=== PATIENT | female | born 1930 | race Caucasian/White ===

== ENCOUNTER 2016-08-26 16:58 | Inpatient (IN) | payer OTHER ==
[~2016-08-26] VITALS: Ht 152.4 cm; Wt 57.3 kg
[~2016-08-26 16:58] MED LIST: ATV1 PO; LATA0.009; TIMO0.5S2; UNKNOWN MEDS; [UNRECOGNIZED DRUG - OTHER]
[2016-08-26] MEDS ORDERED: SODIUM CHLORIDE 0.9% 1000ML 1,000 ML IV STA (17:11)
--- NOTE | 2016-08-26 17:18 | EMERGENCY ROOM VISIT NOTE ---
History Report prepared by Joleen: Anca Whipple Under the Supervision of: Dr. Leeroy Carcamo M.D. First contact with patient: 17:01 Chief Complaint: HIP PAIN Stated Complaint: FALL, HIP PAIN History of Present Illness The patient is an 86 year old female who presents to the Emergency Room with complaints of persistent right hip pain that began prior to arrival. She currently rates her discomfort as a 5/10 in severity. Per the patient's son, the patient missed one step and fell down two steps onto her right hip. He states that he found the patient lying on her right hip, denying any signs of hitting her head. The patient's son states that he tried moving her, but states that movement worsened her pain. He states that he called ALS. Per nursing staff the patient received 4 mg of Zofran and 50 mcg of Fentanyl prior to arrival. The patient denies any other pain or headache. The patient's family reports that the patient is on aspirin daily. They deny the patient having any past medical history. Source of History: patient, family, nursing staff Onset: prior to arrival Position: other (right hip) Symptom Intensity: 5/10 Timing: other (persistent) Modifying Factors (Worsening): movement Associated Symptoms: No headache Review of Systems See HPI for pertinent positives & negatives. A total of 10 systems reviewed and were otherwise negative. Past Medical & Surgical Medical Problems: (1) Right Hip Fracture Surgical Problems: (1) History of cholecystectomy (2) Hx of tonsillectomy Family History Noncontributory secondary to age Social History Housing Status: lives with family Occupation Status: retired Current/Historical Medications Scheduled Aspirin (Aspirin), 1 TAB PO DAILY Allergies Coded Allergies: No Known Allergies (Unverified , 08/26/16) Physical Exam Vital Signs Date Time Temp Pulse Resp B/P Pulse Ox O2 Delivery O2 Flow Rate FiO2 08/26/16 18:42 80 16 155/83 99 08/26/16 17:07 36.8 80 18 178/80 97 Room Air Physical Exam GENERAL: Patient is in no acute distress. HEENT: No acute trauma, normocephalic atraumatic, mucous membranes moist, no nasal congestion, no scleral icterus. No scalp hematoma. NECK: No stridor, no adenopathy, no meningismus, trachea is midline. No posterior C-spine tenderness. LUNGS: Clear to auscultation bilaterally, no wheeze, no rhonchi, breath sounds equal. HEART: Without murmurs gallops or rubs, regular rate and rhythm. ABDOMEN: Soft, nontender, bowel sounds positive, no hernias, no peritonitis. EXTREMITIES: Right hip is tender with palpation. The right hip and knee are flexed slightly. Any movement of the right lower extremity causes hip pain. Strong dorsalis pedis pulse on the right. No pain to palpate the mid to distal femur, knee, tib/fib, ankle or foot. NEUROLOGIC: Oriented x 3, no acute motor or sensory deficits, no focal weakness. SKIN: No rash, no jaundice, no diaphoresis. Medical Decision & Procedures ER Provider Diagnostic Interpretation: X-ray results as stated below per interpretation by me and the radiologist: RIGHT PELVIS/UNILATERAL HIP 2-3VIEWS CLINICAL HISTORY: FALL, RT HIP PAIN Right trauma. Pain. COMPARISON: None. DISCUSSION: Intertrochanteric fracture right hip. Slight angulation. No evidence of dislocation. No evidence for acetabular protrusion. There is no evidence for soft tissue swelling. IMPRESSION: Intertrochanteric fracture right hip. Mild angulation. Electronically signed by: Mahesh Hanson M.D. 08/26/2016 6:15 PM Dictated Date/Time: 08/26/2016 6:14 PM Laboratory Results 08/26/16 17:36 08/26/16 17:36 Test 08/26/16 00:00 08/26/16 17:36 Red Blood Count 4.51 M/uL (4.2-5.4) Mean Corpuscular Volume 86.3 fL (80-100) Mean Corpuscular Hemoglobin 29.7 pg (25-34) Mean Corpuscular Hemoglobin Concent 34.4 g/dl (32-36) RDW Standard Deviation 44.3 fL (36.4-46.3) RDW Coefficient of Variation 14.0 % (11.5-14.5) Mean Platelet Volume 10.3 fL (7.4-10.4) Prothrombin Time 10.1 SECONDS (9.0-12.0) Prothromb Time International Ratio 0.9 (0.9-1.1) Activated Partial Thromboplast Time 25.6 SECONDS (21.0-31.0) Partial Thromboplastin Ratio 1.0 Anion Gap 10.0 mmol/L (3-11) Est Creatinine Clear Calc Drug Dose 50.7 ml/min Estimated GFR () 94.0 Estimated GFR (Non- 81.1 BUN/Creatinine Ratio 28.8 (10-20) Calcium Level 8.7 mg/dl (8.5-10.1) Total Bilirubin 0.2 mg/dl (0.2-1) Aspartate Amino Transf (AST/SGOT) 18 U/L (15-37) Alanine Aminotransferase (ALT/SGPT) 20 U/L (12-78) Alkaline Phosphatase 76 U/L (45-117) Total Protein 7.1 gm/dl (6.4-8.2) Albumin 3.3 gm/dl (3.4-5.0) Globulin 3.8 gm/dl (2.5-4.0) Albumin/Globulin Ratio 0.9 (0.9-2) Thyroid Stimulating Hormone (TSH) 4.830 uIu/ml (0.300-4.500) Laboratory results reviewed by me. Medications Administered Medications (Trade) Dose Ordered Sig/Whit Route Start Time Stop Time Status Last Admin Dose Admin Sodium Chloride (Nss 1000ml) 1,000 ml @ 125 mls/hr Q8H STAT IV 08/26/16 17:11 08/27/16 01:10 08/26/16 17:34 125 MLS/HR Morphine Sulfate (MoRPHine SULFATE INJ) 4 mg Q15M PRN IV 08/26/16 17:15 09/09/16 17:14 08/26/16 17:35 4 MG ECG Indication: other (trauma) Rate (beats per minute): 87 Rhythm: normal sinus Findings: no acute ischemic change, no ectopy ED Course 170: The patient was evaluated in room C6. A complete history and physical exam was performed by the medical student. 170: The patient was evaluated in room C6. A complete history and physical exam was performed. 171: Ordered Sodium Chloride 1000 ml @ 125 mls/hr IV. 1715: Ordered Morphine Sulfate 4 mg IV. 1823: I discussed the patients case with Dr. Hastings, Orthopedics. He would like the patient to be evaluated under medicine. I will consult medicine. 183: I discussed the patients case with Dr. [place], [facility] [place] He wants the patient to be evaluated by orthopedics. 183: I rediscussed the patients case with Daniela Mo. He will evaluate the patient for further treatment. 1836: I discussed the exam findings with the patients family at this time. I discussed the treatment plan and they verbalized complete understanding and agreement. The patient was resting comfortably at this time. She will be evaluated for further treatment. Medical Decision The patient is an 86 year old female who presents to the ED with complaints of right hip pain. Differential diagnoses considered include pelvis or hip fracture, head injury, c-spine injury, hematoma, contusion, strain, femur fracture. There is no leukocytosis or concerning anemia. No significant electrolyte abnormality or kidney failure. There is no hepatitis. TSH only slightly elevated. Urinalysis result is pending. Pelvis and right hip films were done, there is no pelvic fracture, there is a right intertrochanteric hip fracture. She is neurovascularly intact distally in the right lower extremity. She has no headache or neck pain, she denies hitting her head or injuring her neck. The only injury was to her right hip. I spoke with orthopedics, I talked with medicine. The patient will be brought into the hospital for eventual orthopedic intervention. During her ER stay, she received IV saline, she was given IV morphine for pain control. She seems comfortable. I did speak with her family about my findings. Case management has been involved. Consults Time Called: 1821 Consulting Physician: Daniela Mo Returned Call: 1822 I discussed the patients case with Daniela Mo. He would like the patient to be evaluated under medicine. I will consult medicine. Additional Consults: Time Called: 1826 Consulted Physician: MARIAELENA Correa Returned Call: 1829 Additional Comments: I discussed the patients case with MARIAELENA Correa. He wants the patient to be evaluated by orthopedics. Time Called: 1830 Consulted Physician: Daniela Mo Returned Call: [phone] Additional Comments: I rediscussed the patients case with Daniela Mo. He will evaluate the patient for further treatment. Impression Primary Impression: Hip fracture, right Additional Impression: Fall Scribe Attestation The scribe's documentation has been prepared under my direction and personally reviewed by me in its entirety. I confirm that the note above accurately reflects all work, treatment, procedures, and medical decision making performed by me. Departure Information Dispostion Being Evaluated By Surgeon Referrals Niko Duenas M.D. (PCP) Problem Qualifiers
[2016-08-26] MEDS ORDERED: ASPI1TAB83 PO (17:23)
[2016-08-26] MEDS: MoRPHine SULFATE 4 MG/ML 1 ML CARP\\VIAL IV PRN ×2 (17:35→19:47)
[2016-08-26 17:46] LABS: HEMATOCRIT 38.9 % (37-47); MEAN CELL VOLUME 86.3 fL (80-100); MEAN CORPUSCULAR HEMOGLOBIN 29.7 pg (25-34); MEAN CORPUSCULAR HGB CONC 34.4 g/dl (32-36); MEAN PLATELET VOLUME 10.3 fL (7.4-10.4); PLATELET COUNT 219 K/uL (130-400); RED BLOOD COUNT 4.51 M/uL (4.2-5.4); WHITE BLOOD COUNT 6.67 K/uL (4.8-10.8)
[2016-08-26 17:54] LABS: INR 0.9 (0.9-1.1); PROTHROMBIN TIME (PATIENT) 10.1 SECONDS (9.0-12.0)
[2016-08-26 18:13] LABS: BUN/CREATININE RATIO 28.8 (10-20); CALCIUM 8.7 mg/dl (8.5-10.1); CREATININE 0.62 mg/dl (0.60-1.20); POTASSIUM 3.6 mmol/L (3.5-5.1)
--- NOTE | 2016-08-26 18:16 | DIAGNOSTIC IMAGING REPORT ---
RIGHT PELVIS/UNILATERAL HIP 2-3VIEWS CLINICAL HISTORY: FALL, RT HIP PAIN Right trauma. Pain. COMPARISON: None. DISCUSSION: Intertrochanteric fracture right hip. Slight angulation. No evidence of dislocation. No evidence for acetabular protrusion. There is no evidence for soft tissue swelling. IMPRESSION: Intertrochanteric fracture right hip. Mild angulation. Electronically signed by: Mahesh Hanson M.D. 08/26/2016 6:15 PM Dictated Date/Time: 08/26/2016 6:14 PM
[2016-08-26 18:24] LABS: ALB/GLOB RATIO 0.9 (0.9-2); THYROID STIMULATING HORMONE 4.83 uIu/ml (0.300-4.500)
[2016-08-26] MEDS ORDERED: MoRPHine SULFATE 2 MG/ML CARP IV PRN (18:45)
[2016-08-26 19:02] LABS: URINE APPEARANCE CLEAR (CLEAR); URINE BILIRUBIN NEG (NEG); URINE COLOR YELLOW; URINE NITRITE NEG (NEG); URINE PH 5.5 (4.5-7.5); URINE SPECIFIC GRAVITY 1.021 (1.000-1.030); UROBILINOGEN NEG (NEG)
[2016-08-26 19:03] LABS: MANUAL MICROSCOPIC REQUIRED? NO; REVIEW REQ? NO
--- NOTE | 2016-08-26 19:37 | DIAGNOSTIC IMAGING REPORT ---
CHEST ONE VIEW PORTABLE CLINICAL HISTORY: Pre-op for hip surgery preoperative evaluation COMPARISON STUDY: 06/11/2007 FINDINGS: The bones soft tissues and hemidiaphragms are normal. The cardiomediastinal silhouette is normal. The lungs are clear. The pulmonary vasculature is normal. IMPRESSION: Negative chest. Electronically signed by: Mahesh Hanson M.D. 08/26/2016 7:35 PM Dictated Date/Time: 08/26/2016 7:35 PM
[2016-08-26 20:00] VITALS: BP 124/76; PULSE 82; TEMP 36.4; O2SAT 94; Ht 152.4 cm; Wt 57.3 kg
[2016-08-26 20:41] VITALS: BP 124/76; PULSE 82; TEMP 36.4; O2SAT 94
[2016-08-26] MEDS: OXYCODONE/ACETAMINOPHEN 5-325 TAB PO PRN (22:25)
[2016-08-26] MEDS: SODIUM CHLORIDE 0.45% 1000ML 1,000 ML IV SCH (22:26)
--- NOTE | 2016-08-26 22:27 | Medical Consult ---
Consultation Date of Consultation: Aug 26, 2016. Attending Physician: Juan Luis Hastings M.D. Reason for Consultation: Pre op clearance History of Present Illness Mrs Dumont is a pleasant 86 year old female who recently moved here from [facility] in December 2015. She has not yet established with a doctor in the [facility] however as per her son she has no chronic medical issues established by her doctor in [facility]. Her son (Derik) is by the bedside and is translating. She speaks and can understand limited Indonesian. She was seen in the ER for right hip pain after a fall down steps. X-ray shows an intertrochanteric fracture of the right hip. The patient feels otherwise well apart from this. She denies any chest pain, shortness of breath, loss of consciousness or hitting her head. She appears comfortable around her son and can understand some of my questions without translation. He appears to be fully translating my questions and her answers. He is feeding her at bedside when I left. I have no concerns for abuse however recommend using a mess cook in the morning especially for consent for the surgery. She routinely walks 500m around the block without any shortness of breath, dizziness or chest pain. She is able to make is up 1 flight of stairs at home without a problem (she has not tried 2 flights). She does not have any night sweats, abnormal bleeding or bruising. Past Medical/Surgical History Medical Problems: None. Takes aspirin for primary prevention. Past Surgical History (1) Cholecystectomy > 20 years previously. No anesthetic problems at that time. Social History Smoking Status: Never Smoker Alcohol Use: daily small glass of wine and occasional G[employer]T Drug Use: none Marital Status: Housing Status: lives with family Occupation Status: retired Allergies Coded Allergies: No Known Allergies (Unverified , 08/26/16) Current Inpatient Medications Current Inpatient Medications Medications (Trade) Dose Ordered Sig/Whit Route Start Time Stop Time Status Last Admin Dose Admin Sodium Chloride (1/2 Nss 1000ml) 1,000 ml @ 50 mls/hr Q20H IV 08/26/16 18:39 09/25/16 18:38 Morphine Sulfate (MoRPHine SULFATE INJ) 2 mg Q1H PRN IV 08/26/16 18:45 09/09/16 18:44 Oxycodone/ Acetaminophen 1 tab 1 tab Q4H PRN PO 08/26/16 18:45 09/09/16 18:44 Cefazolin Sodium (Ancef 2000mg/60 ml D5W) 60 ml @ 100 mls/hr PREOP IV 08/27/16 06:00 08/27/16 23:59 Aspirin (Ecotrin Tab) 81 mg DAILY PO 08/27/16 09:00 09/26/16 08:59 Review of Systems Constitutional: No chills, No fever, No sweats Eyes: No worsening of vision ENT: No hearing loss Respiratory: No cough, No dyspnea at rest, No dyspnea on exertion, No shortness of breath, No sputum, No wheezing Abdomen: + problem reported (last BM today reportedly normal), No GI bleeding, No constipation, No diarrhea, No nausea, No pain, No vomiting Genitourinary - Female: No dysuria, No urinary frequency, No urinary incontinence, No urinary retention, No urinary urgency Endocrine: No excessive thirst, No excessive urination, No fatigue Hematologic / Lymphatic: No abnormal bleeding/bruising, No clotting problems Integumentary: No itch, No rash Physical Exam Date Time Temp Pulse Resp B/P Pulse Ox O2 Delivery O2 Flow Rate FiO2 08/26/16 20:41 36.4 82 18 124/76 94 Nasal Cannula 2.0 08/26/16 19:54 95 Nasal Cannula 2.0 08/26/16 19:53 88 Room Air 08/26/16 19:51 91 18 133/64 91 08/26/16 18:42 80 16 155/83 99 08/26/16 17:07 36.8 80 18 178/80 97 Room Air General Appearance: WD/WN, no apparent distress Head: normocephalic, atraumatic Eyes: normal inspection, PERRL, EOMI ENT: normal ENT inspection, pharynx normal Neck: supple, no JVD Respiratory/Chest: chest non-tender, lungs clear, normal breath sounds, no respiratory distress, no accessory muscle use Cardiovascular: normal peripheral pulses (bounding strong radial pulses), + systolic murmur (loudest at RUSB and apex, radiates to carotids, ), + irregularly irregular Abdomen/GI: normal bowel sounds, soft, + tenderness (Right groin pain on RLQ palpation) Back: no CVA tenderness Extremities/Musculoskelatal: no calf tenderness, no pedal edema, + pertinent finding (cap refil <2s distal to #, DP pulse intact, patient in traction, ankle plantarflexion and 1st MTPJ flexion intact distal to #, Sensation intact distal to #) Neurologic/Psych: sealer aircraft II-XII nml as tested (no facial droop, subjective numbness, SCM and trapezius intact, no swallowing difficulties), alert, normal mood/affect, oriented x 3 (although gets the year wrong) Skin: normal color, warm/dry, no rash Laboratory Results Last 24 Hours Test 08/26/16 00:00 08/26/16 17:36 Urine Color YELLOW Urine Appearance CLEAR Urine pH 5.5 Urine Specific [place] 1.021 Urine Protein NEG Urine Glucose (UA) NEG Urine Ketones NEG Urine Occult Blood 1+ Urine Nitrite NEG Urine Bilirubin NEG Urine Urobilinogen NEG Urine Leukocyte Esterase NEG Urine WBC (Auto) 0 /hpf Urine RBC (Auto) 5-10 /hpf Urine Hyaline Casts (Auto) 1-5 /lpf Urine Epithelial Cells (Auto) 10-20 /lpf Urine Bacteria (Auto) NEG White Blood Count 6.67 K/uL Red Blood Count 4.51 M/uL Hemoglobin 13.4 g/dL Hematocrit 38.9 % Mean Corpuscular Volume 86.3 fL Mean Corpuscular Hemoglobin 29.7 pg Mean Corpuscular Hemoglobin Concent 34.4 g/dl RDW Standard Deviation 44.3 fL RDW Coefficient of Variation 14.0 % Platelet Count 219 K/uL Mean Platelet Volume 10.3 fL Prothrombin Time 10.1 SECONDS Prothromb Time International Ratio 0.9 Activated Partial Thromboplast Time 25.6 SECONDS Partial Thromboplastin Ratio 1.0 Sodium Level 145 mmol/L Potassium Level 3.6 mmol/L Chloride Level 107 mmol/L Carbon Dioxide Level 28 mmol/L Anion Gap 10.0 mmol/L Blood Urea Nitrogen 18 mg/dl Creatinine 0.62 mg/dl Est Creatinine Clear Calc Drug Dose 50.7 ml/min Estimated GFR () 94.0 Estimated GFR (Non- 81.1 BUN/Creatinine Ratio 28.8 Random Glucose 123 mg/dl Calcium Level 8.7 mg/dl Total Bilirubin 0.2 mg/dl Aspartate Amino Transf (AST/SGOT) 18 U/L Alanine Aminotransferase (ALT/SGPT) 20 U/L Alkaline Phosphatase 76 U/L Total Protein 7.1 gm/dl Albumin 3.3 gm/dl Globulin 3.8 gm/dl Albumin/Globulin Ratio 0.9 Thyroid Stimulating Hormone (TSH) 4.830 uIu/ml Assessment & Plan Documented By: Lokesh Tam 86 yo female with intertrochanteric fracture right hip. Intertrochanteric fracture of right hip - management as per primary orthopedic team New early onset systolic murmur on examination - recommend echocardiogram in morning before surgery to assess ?aortic stenosis , mitral regurgitation. No pulmonary edema on CXR and lack of symptoms previously would favor aortic sclerosis. Irregularly irregular HR - stat EKG shows SR with premature supraventricular complexes which would explain this rather than atrial fibrillation. Recheck of pulse after latest EKG @ 21:32 for regular for at least 30 seconds. Pre operative clearance Revised Cardiac Risk Index for Pre-Operative Risk - 0 Recommend investigating murmur pre op as above Aspirin can be stopped as she takes it for primary prevention only if required by the primary orthopedic team. Hematuria - 5-10 RBC with urine, recommend outpatient follow up, test to clear VTE Prophylaxis - as per primary orthopedic team Code - Full as per patient wishes Disposition - managed by primary ortho team Resident Physician Supervision Note: Pt examined independently - discussed with daughter who served as mess cook. I discussed the case with the resident and agree with the findings and plan as documented in the note. Any exceptions or clarifications are listed here. Admitted following mechanical fall leading to an intertrochanteric fracture - per family she has no significant medical history and is relatively active An echo was ordered by the resident due to a murmur - while mild, this may be reasonable to r/o stenosis as it is difficult to danielle mets. Pt states her pain is well controlled OE AAO x 3 S1,2 - mild systolic murmur NT, ND, BS+ No CCE P: Echo and can likely proceed to surgery as RCRI < 0.4% based on Hx Resident Tracking Resident Involvement: Resident Care Provided Care Provided: Adult Hospital Medicine
[2016-08-26 23:32] VITALS: BP 157/69; PULSE 89; TEMP 36.4; O2SAT 95
[2016-08-27] VITALS (8 sets, daily range): BP systolic 92–136; BP diastolic 50–69; PULSE 91–106; TEMP 36.4–37.1; O2SAT 95–99
[2016-08-27] MEDS ORDERED: CEFAZOLIN 2000 MG/60 ML D5W 60 ML IV SCH (06:00)
[2016-08-27 06:33] LABS: HEMATOCRIT 35.4 % (37-47)
--- NOTE | 2016-08-27 08:28 | PROGRESS NOTE ---
DATE: 08/27/2016 SUBJECTIVE: Glenda is an 86-year-old female, who speaks very little Icelandic, who sustained a fall and has a right intertrochanteric hip fracture. She was admitted thru the ER last evening. She is otherwise healthy. No pre-existing hip pain. They have requested Dr. Santana's care. I did stop by and visit with the patient and her family this morning and explained the situation that Dr. Santana or the physician reference assistant would be in to see her later on today. She is resting in bed and looked quite comfortable. No urgent needs. She has been set up and scheduled for surgery later today as long as she is medically cleared. I will transfer her care to Dr. Santana and they will doing a formal evaluation and treatment. I answered some questions as far as typical process with this type of injury. GUILLAUME
--- NOTE | 2016-08-27 08:32 | History and Physical ---
History & Physical Date Aug 27, 2016. Chief Complaint Right hip pain History of Present Illness The patient is a 86 year old female with complaints of right hip pain s/p fall. Has never injured the right hip in the past. Admits to pain with attempted weightbearing and with motion. Denies numbness or tingling distally. Denies calf pain. Past Medical/Surgical History Medical Problems: (1) Right Hip Fracture Surgical Problems: (1) History of cholecystectomy (2) Hx of tonsillectomy Additional History Hepatic Disease: No Endocrine Disorder: No Kidney Disease: No Hypertension: No Heart Disease: No Bleeding Tendencies: No Infectious Diseases: No Other: Denies headache, chest pain, shortness of breath, fevers, chills, night sweats. Allergies Coded Allergies: No Known Allergies (Unverified , 08/26/16) Home Medications Scheduled Aspirin (Aspirin), 1 TAB PO DAILY Physical Examination Skin: warm/dry, no rash Eyes: normal inspection ENT: normal ENT inspection, + pertinent finding (upper dental plate ) Respiratory/Chest: lungs clear, normal breath sounds, no respiratory distress Cardiovascular: regular rate, rhythm, no edema, no murmur Abdomen / GI: normal bowel sounds, non tender Extremities: + pertinent finding (right lower extremity is shortened, foot is externally rotated, tenderness over the right greater trochanter, calf supple and non-tender) Neurologic/Psych: no motor/sensory deficits (+5 strength with dorsi/plantar flexion, capillary refill under 2 seconds), alert, oriented x 3 Addiitonal Comments: Patient accompanied by her son and fellow family member, pippa, does not speak much Turkmen, her son translates for her, NAD Diagnosis Right hip fracture Plan of Treatment Glenda will undergo a Right hip trochanteric nailing by Dr. Santana from [facility] on 08/27/16 at the [facility]. The patient has been NPO. All consents and forms completely and signed accordingly by the patient and her son. The pros and cons of surgery have been discussed and all parties are agreeable. Appropriate labs and imaging have been obtained. Orders will follow post-operatively accordingly. Will most likely need a short term rehab stay upon discharge from the hospital. Will also need a 2 week follow-up at [facility] with Dr. Santana if possible for staple removal. Any further questions or concerns please notify our office at [phone], thank you.
[2016-08-27] MEDS ORDERED: EpHEDrine SULFATE INJ 50 MG/ML AMP IV PRN (08:45)
[2016-08-27] MEDS ORDERED: HYDROmorphone INJ 2 MG/ML SYR/VIAL IV PRN (08:45)
[2016-08-27] MEDS ORDERED: ONDANSETRON INJ 2 MG/ML 2 ML VIAL IV PRN (08:45)
[2016-08-27] MEDS ORDERED: PHENYLEPHRINE 100MCG/ML 5ML SYR IV PRN (08:45)
[2016-08-27] MEDS ORDERED: ATROPINE SULFATE 0.1 MG/ML 5ML SYR IV PRN (08:45)
[2016-08-27] MEDS ORDERED: PROPOFOL IV EMULSION 10 MG/ML 20 ML VIAL IV ONE (09:06)
[2016-08-27] MEDS ORDERED: MIDAZOLAM HCL 1 MG/ML 2ML VIAL ONE (09:06)
[2016-08-27] MEDS ORDERED: FENTANYL CITRATE INJ 50 MCG/1 ML 2 ML VIAL ONE (09:06)
[2016-08-27] MEDS ORDERED: LIDOCAINE HCL 2% 2 ML VIAL (20MG/ML) ONE (09:07)
[2016-08-27] MEDS ORDERED: ALBUMIN HUMAN 5% 12.5 GM/250 ML VIAL IV ONE (09:50)
[2016-08-27] MEDS ORDERED: PHENYLEPHRINE HCL INJ 10 MG/ML VIAL ONE (10:39)
[2016-08-27] MEDS ORDERED: PHENYLEPHRINE 100MCG/ML 5ML SYR ONE (10:39)
[2016-08-27] MEDS ORDERED: BUPIVACAINE 0.5 % 5 MG/1 ML PF 10ML VIAL ONE (10:45)
[2016-08-27] MEDS ORDERED: POVIDONE-IODINE OP SOLN 30 ML BTL ONE (11:05)
[2016-08-27] MEDS ORDERED: LIDOCAINE/EPINEPHRINE 1% 20 ML VIAL ONE ×2 (11:12→11:41)
--- NOTE | 2016-08-27 11:18 | ORTHOPEDIC CONSULTATION ---
DATE OF CONSULTATION: 08/27/2016 HISTORY OF PRESENT ILLNESS: The patient was admitted last evening while Dr. Hastings was non linear editor and I have assumed her care at the patient's son's request. She is an 86-year-old female who speaks very little Central African. She is from [facility]. She fell yesterday at her son's home injuring her right hip. She has no significant past medical history. She had gallbladder removed. She does not take any medicines other than aspirin and has no allergies. PHYSICAL EXAMINATION: On exam, she has a shortened externally rotated right hip, there is tenderness to palpation of the right leg. She is awake, alert and oriented. She can move her arms and her left leg without difficulty. She has a 2+ dorsalis pedis pulse. Normal sensation in the foot. She can flex and extend her ankle. Her leg is otherwise nontender. Radiographs show an angulated uncomminuted appearing intertrochanteric fracture with probable osteoporosis. There is no arthritis. PLAN: My recommendation is to have a long troch nail inserted. The treatment options, risks and benefits were reviewed and they elected to proceed with surgery. an informed consent is obtained. I reviewed her medical consultation as well as her labs and echo is pending. Risks of infection, bleeding, pain, scarring, nerve and blood vessel damage, blood clots, embolism, heart attack, stroke, and , hardware failure, cut out of the implant are discussed. We reviewed milestones in her recovery. She has been n.p.o. and will plan on surgery this morning as soon as the OR is ready. I have noted her CBC, UA PT/INR and Chem-20 panel, which has minimal nonsubstantial irregularities. Her chest x-ray is negative. Echo results are pending.
--- NOTE | 2016-08-27 11:49 | Progress Note ---
Subjective Date of Service: Aug 27, 2016. Subjective Pt evaluation today including: conversation w/ patient, physical exam, chart review, lab review, review of studies, review of inpatient medication list Problem List Medical Problems: (1) Fall Status: Acute (2) Hip fracture, right Status: Acute Review of Systems Constitutional: No chills, No fever Respiratory: No cough, No dyspnea on exertion, No shortness of breath, No sputum, No wheezing Cardiac: No chest pain, No orthopnea Abdomen: No constipation, No diarrhea, No nausea, No pain, No vomiting Musculoskeletal: No joint pain, No muscle pain Female : No dysuria, No urinary frequency Objective Vital Signs Date Time Temp Pulse Resp B/P Pulse Ox O2 Delivery O2 Flow Rate FiO2 08/27/16 08:39 37.4 94 18 141/60 93 Nasal Cannula 3 08/27/16 07:30 Nasal Cannula 2.0 08/27/16 06:55 37.1 91 20 136/69 96 Room Air 08/26/16 23:32 36.4 89 18 157/69 95 Nasal Cannula 2.0 08/26/16 20:41 36.4 82 18 124/76 94 Nasal Cannula 2.0 08/26/16 20:00 36.4 82 18 124/76 94 Nasal Cannula 2.0 08/26/16 19:54 95 Nasal Cannula 2.0 08/26/16 19:53 88 Room Air 08/26/16 19:51 91 18 133/64 91 08/26/16 18:42 80 16 155/83 99 08/26/16 17:07 36.8 80 18 178/80 97 Room Air Physical Exam General Appearance: WD/WN, no apparent distress Eyes: PERRL, EOMI Neck: supple, no adenopathy Cardiovascular: no edema, no gallop, + systolic murmur Abdomen: non tender, soft Neurologic/Psychiatric: no motor/sensory deficits, alert Laboratory Results Last 24 Hours Test 08/26/16 17:36 08/27/16 06:09 White Blood Count 6.67 K/uL Red Blood Count 4.51 M/uL Hemoglobin 13.4 g/dL 11.8 g/dL Hematocrit 38.9 % 35.4 % Mean Corpuscular Volume 86.3 fL Mean Corpuscular Hemoglobin 29.7 pg Mean Corpuscular Hemoglobin Concent 34.4 g/dl RDW Standard Deviation 44.3 fL RDW Coefficient of Variation 14.0 % Platelet Count 219 K/uL Mean Platelet Volume 10.3 fL Prothrombin Time 10.1 SECONDS Prothromb Time International Ratio 0.9 Activated Partial Thromboplast Time 25.6 SECONDS Partial Thromboplastin Ratio 1.0 Sodium Level 145 mmol/L Potassium Level 3.6 mmol/L Chloride Level 107 mmol/L Carbon Dioxide Level 28 mmol/L Anion Gap 10.0 mmol/L Blood Urea Nitrogen 18 mg/dl Creatinine 0.62 mg/dl Est Creatinine Clear Calc Drug Dose 50.7 ml/min Estimated GFR () 94.0 Estimated GFR (Non- 81.1 BUN/Creatinine Ratio 28.8 Random Glucose 123 mg/dl Calcium Level 8.7 mg/dl Total Bilirubin 0.2 mg/dl Aspartate Amino Transf (AST/SGOT) 18 U/L Alanine Aminotransferase (ALT/SGPT) 20 U/L Alkaline Phosphatase 76 U/L Total Protein 7.1 gm/dl Albumin 3.3 gm/dl Globulin 3.8 gm/dl Albumin/Globulin Ratio 0.9 Thyroid Stimulating Hormone (TSH) 4.830 uIu/ml Assessment and Plan 86 yo female with intertrochanteric fracture right hip. Intertrochanteric fracture of right hip - management as per primary orthopedic team New early onset systolic murmur on examination - recommend echocardiogram in morning before surgery to assess ?aortic stenosis , mitral regurgitation. No pulmonary edema on CXR and lack of symptoms previously would favor aortic sclerosis. Pre operative clearance Revised Cardiac Risk Index for Pre-Operative Risk - 0 ECHO pending, no signs of heart failure Aspirin can be stopped as she takes it for primary prevention only if required by the primary orthopedic team. VTE Prophylaxis - as per primary orthopedic team Code - Full as per patient wishes Disposition - managed by primary ortho team
[2016-08-27 12:28] LABS: ISTAT CREATININE 0.5 mg/dl (0.6-1.3); ISTAT HEMOGLOBIN 11.6 g/dl (12.0-16.0); ISTAT IONIZED CALCIUM 1.2 mmol/l (1.12-1.32)
--- NOTE | 2016-08-27 12:28 | [facility] Post Operative Brief Note ---
Immediate Operative Summary Operative Date Aug 27, 2016. Pre-Operative Diagnosis Right Hip Fracture Post-Operative Diagnosis Right Hip Fracture Procedure(s) Performed Right Hip Trochanteric Nail Surgeon Dr. Santana Lab Tech Surgeon(s) ALETHEA Vaz Estimated Blood Loss 250ML Findings right intertroch fracture Specimens none per surgeon Anesthesia Spinal with sedation Complication(s) None Disposition Recovery Room / PACU
[2016-08-27] MEDS ORDERED: HYDROmorphone INJ 1 MG/ML SYR ONE (12:30)
[2016-08-27] MEDS ORDERED: ALUMINUM/MAGNESIUM/SIMETH (MAALOX MAX) 30 ML UDC PO PRN (12:30)
[2016-08-27] MEDS ORDERED: ERGOCALCIFEROL 50,000 INTER.UNIT CAP PO ONE (12:30)
--- NOTE | 2016-08-27 12:40 | ECHOCARDIOGRAM REPORT ---
*NOTICE TO RECEIVING LIBERTARIAN AGENCY This information is strictly Confidential and protected under [place] law. [place] law prohibits you from making any further disclosure of this information unless further disclosure is expressly permitted by the written consent of the person to whom it pertains or is authorized by law. A general authorization for the release of medical or other information is not sufficient for this purpose. Hospital accepts no responsibility if the information is made available to any other person, INCLUDING THE PATIENT. Interpretation Summary * Name: STEFANIA GOLDEN Study Date: 08/27/2016 07:48 AM BP: 141/60 mmHg * Patient Location: .[facility]\S\W360\S\1 HR: 94 * : 1930 (M/d/yyyy) Gender: Female Height: 60 in * Age: 86 yrs Ethnicity: OT Weight: 126 lb * Ordering Physician: Laith Lott * Performed By: Alexia Baum RDCS * * Reason For Study: Murmurs * BSA: 1.5 m2 * -- Conclusions -- * Left ventricular systolic function is normal. * No regional wall motion abnormalities noted. * Ejection Fraction = 65-70%. * There is borderline concentric left ventricular hypertrophy. * Grade I diastolic dysfunction, (abnormal relaxation pattern). * Aortic valve sclerosis bordering on mild stenosis. * There is mild tricuspid regurgitation. Procedure Details * A complete two-dimensional transthoracic echocardiogram was performed (2D, M-mode, Doppler and color flow Doppler). Left Ventricle * The left ventricle is normal in size. * There is borderline concentric left ventricular hypertrophy. * Ejection Fraction = 65-70%. * Left ventricular systolic function is normal. * No regional wall motion abnormalities noted. Right Ventricle * The right ventricle is grossly normal size. * The right ventricular systolic function is normal as assessed by tricuspid annular plane systolic excursion (TAPSE) (normal >1.5 cm). Atria * The left atrial size is normal. * Right atrial size is normal. * No ASD detected; PFO is not assessed. Mitral Valve * The mitral valve is grossly normal. * Significant mitral regurgitation is absent. Tricuspid Valve * The tricuspid valve is not well visualized, but is grossly normal. * There is mild tricuspid regurgitation. Aortic Valve * Aortic valve sclerosis bordering on mild stenosis. * Trace aortic regurgitation. Pulmonic Valve * The pulmonic valve is not well visualized. Great Vessels * The aortic root is normal size. Pericardium/Pleural * There is no pericardial effusion. Great Vessels * Normal inferior vena cava size and collapsability with sniff indicates a normal right atrial pressure of 3 mmHg Left Ventricular Diastolic Function * Grade I diastolic dysfunction, (abnormal relaxation pattern). MMode 2D Measurements and Calculations IVSd 0.90 cm LVIDd 3.2 cm LVIDs 1.9 cm LVPWd 0.98 cm IVS/LVPW 0.92 FS 40.0 % EDV(Teich) 40.9 ml ESV(Teich) 11.4 ml EF(Teich) 72.1 % EDV(cubed) 32.7 ml ESV(cubed) 7.0 ml EF(cubed) 78.4 % LV mass(C)d 82.5 grams LV mass(C)dI 53.8 grams/m\S\2 SV(Teich) 29.4 ml SI(Teich) 19.2 ml/m\S\2 SV(cubed) 25.6 ml SI(cubed) 16.7 ml/m\S\2 Ao root diam 3.1 cm Ao root area 7.5 cm\S\2 ACS 1.2 cm LA dimension 2.5 cm asc Aorta Diam 3.1 cm LA/Ao 0.80 LVOT diam 1.9 cm LVOT area 3.0 cm\S\2 LVAd ap4 13.4 cm\S\2 LVLd ap4 5.9 cm EDV(MOD-sp4) 25.5 ml EDV(sp4-el) 25.9 ml LVAs ap4 6.0 cm\S\2 LVLs ap4 4.4 cm ESV(MOD-sp4) 7.3 ml ESV(sp4-el) 7.0 ml EF(MOD-sp4) 71.4 % EF(sp4-el) 73.1 % LVAd ap2 12.2 cm\S\2 LVLd ap2 5.9 cm EDV(MOD-sp2) 21.8 ml EDV(sp2-el) 21.7 ml LVAs ap2 5.5 cm\S\2 LVLs ap2 4.5 cm ESV(MOD-sp2) 6.1 ml ESV(sp2-el) 5.6 ml EF(MOD-sp2) 71.9 % EF(sp2-el) 74.2 % LVLd %diff -0.97 % EDV(MOD-bp) 23.6 ml LVLs %diff 4.1 % ESV(MOD-bp) 6.5 ml EF(MOD-bp) 72.4 % SV(MOD-sp4) 18.2 ml SI(MOD-sp4) 11.9 ml/m\S\2 SV(MOD-sp2) 15.7 ml SI(MOD-sp2) 10.2 ml/m\S\2 SV(MOD-bp) 17.1 ml SI(MOD-bp) 11.1 ml/m\S\2 SV(sp4-el) 18.9 ml SI(sp4-el) 12.3 ml/m\S\2 SV(sp2-el) 16.1 ml SI(sp2-el) 10.5 ml/m\S\2 Doppler Measurements and Calculations MV E max aide 90.2 cm/sec MV A max aide 110.1 cm/sec MV E/A 0.82 MV dec time 0.16 sec Ao V2 max 212.8 cm/sec Ao max PG 18.1 mmHg Ao max PG (full) 13.1 mmHg Ao V2 mean 145.5 cm/sec Ao mean PG 9.5 mmHg Ao V2 VTI 40.9 cm OBEY(V,A) 1.6 cm\S\2 OBEY(V,D) 1.6 cm\S\2 LV V1 max PG 5.0 mmHg LV V1 max 111.6 cm/sec SV(Ao) 306.6 ml SI(Ao) 199.9 ml/m\S\2 PA V2 max 82.8 cm/sec PA max PG 2.7 mmHg PA acc slope 612.8 cm/sec\S\2 PA acc time 0.10 sec TR max aide 257.9 cm/sec PA pr(Accel) 33.1 mmHg
--- NOTE | 2016-08-27 12:42 | [facility] Operative Report ---
Operative Report Operative Date Aug 27, 2016. Pre-Operative Diagnosis Right Hip Fracture Post-Operative Diagnosis SAME Procedure(s) Performed Right hip long troch nail Surgeon Dr. Santana Grey Inspector Surgeon(s) ALETHEA Vaz Estimated Blood Loss 250ML Findings same Specimens none per surgeon Drains none Anesthesia Spinal with sedation Complication(s) None Disposition Recovery Room / PACU Indications sustained injury to right hip diagnosed on xray, surgery recommended, consents signed. Description of Procedure taken to the OR, prepped and draped, I was present the entire case, please see Dr. Santana's op note for further detail. I attest to the content of the Intraoperative Record and any orders documented therein. Any exceptions are noted below.
--- NOTE | 2016-08-27 12:43 | DIAGNOSTIC IMAGING REPORT ---
HIP OR FILMS CLINICAL HISTORY: RT HIP FXhip fracture COMPARISON STUDY: 08/26/2016 FLUOROSCOPY TIME: 2 minutes 7 seconds. FINDINGS: Image intensifier used for intraoperative localization purposes IMPRESSION: Image intensifier used for intraoperative localization purposes Electronically signed by: Mahesh Hanson M.D. 08/27/2016 12:42 PM Dictated Date/Time: 08/27/2016 12:41 PM
[2016-08-27] MEDS ORDERED: EpHEDrine SULFATE INJ 50 MG/ML AMP ONE (12:44)
[2016-08-27] MEDS ORDERED: HYDROmorphone INJ 0.5 MG/0.5 ML SYR IV PRN (12:45)
[2016-08-27 13:06] LABS: HEMATOCRIT 32.5 % (37-47)
--- NOTE | 2016-08-27 13:35 | OPERATIVE REPORT ---
DATE OF OPERATION: 08/27/2016 PREOPERATIVE DIAGNOSIS: Right hip intertrochanteric fracture. POSTOPERATIVE DIAGNOSIS: Same. PROCEDURE: Long trochanteric femoral nail of the right hip for a right intertrochanteric hip fracture. SURGEON: Dr. Santana. ARTIST REPRESENTATIVE: Jez Nino. No resident or fellow available. ANESTHESIA: Spinal with sedation. INDICATIONS OF PROCEDURE: The patient is an 86-year-old female who is from [facility], she does not speak Azeri well. Translation is done with her family. She fell last evening at her son's home injuring her right hip. She was brought to the Emergency Room and diagnosed with a hip fracture and admitted. She was initially admitted by Dr. Hastings and her care transferred to al at the request of the family. She has been seen by medicine and has had an echocardiogram preoperatively. PROCEDURE IN DETAIL: Informed consent was obtained. The patient was identified as Glenda Dumont. She identified the operative site as the right hip. I marked with my initials. A preop surgical time out was performed. A preop dose of IV antibiotics were given. She was taken to the operating room, positioned supine on the fracture table after administration of a spinal anesthetic and sedation. She was placed into a padded well leg aquino on her left leg, a padded perineal post was utilized. The torso was tilted to the unaffected side. The right leg was placed into longitudinal traction with internal rotation. Bony prominences were inspected and padded. The torso was secured to the table. A 1+ palpable dorsalis pedis pulse was present in the left foot after she had been positioned. Fluoroscopic guidance was utilized to reduce the fracture, a little bit of anterior directed force over the posterior proximal femur resulted in an anatomic alignment. She had a slight valgus neck shaft angle. The right hip was then prepped and draped in the usual sterile fashion with use of a shower curtain. DVT prophylaxis postoperatively with early mobility and Lovenox. Fluoroscopic guidance was utilized to identify the proximal trochanter. A 6 cm incision was made in line with the trochanter. Electrocautery was utilized down to subcutaneous tissues and gluteal fascia. The tip of the trochanter was identified and a guidepin was introduced into the proper location on the initial try and advanced into the shaft and adjusted x1 on the lateral view. This was then over reamed with the 17 mm reamer followed by insertion of the guidewire, which was confirmed to be in central location in both the AP and lateral planes. The length was determined to be 360 mm. A 12 mm reamer was passed down the femur followed by insertion of the trevon under hand power. The trevon was in the central position just at the superior portion of the patella on AP and lateral views. The trevon was aligned proximal parallel to the lateral view. A guidepin was inserted in the central position. It was slightly inferior on the AP, but acceptable. An 85 mm spiral blade was selected. Reaming was performed followed by insertion of the spiral blade and advancement of the locking screw. When reaming and instrumenting the proximal femur and inserting the lag bolt, etc, the fracture was held in reduced position. The proximal implements were removed. The spiral blade was inserted through an accessory lateral incision. Distally the perfect clark's point technique was utilized to insert a dynamic distal interlocking screw. Director Of Events images of the fracture site and hardware were obtained. All incisions were thoroughly irrigated with saline and Betadine lavage. The distal incision of the skin was closed with 2-0 Vicryl, proximally the skin was closed with #1 Vicryl for the gluteal fascia. Deep fat layer and 2-0 Vicryl and trish on the skin. The middle incision was noted to have significant bleeding. Initially tried to control this with packing, but this was not successful. I then enlarged the incision, mainly in a proximal direction and identified a bleeder which perhaps was an arterial venous plexus as there were multiple areas of bleeding which were located in the deep subcutaneous fat superficial to the iliotibial band. Electrocautery was utilized along with pressure. I also inserted several sponges soaked with 1% lidocaine with epinephrine. Eventually this was controlled with the use of a pursestring [id number] 2-0 Vicryl stitch and pressure. The wound was dry for at least 5 minutes prior to closure. Care was taken not to disturb the clot and the subcutaneous tissues were closed with 0 Vicryl for the deep subQ layer and 2-0 Vicryl and trish on the skin. A soft sterile dressing was applied. She was taken out of traction. At the end of the case prior to removing the proximal instruments, the traction was relieved and compression was applied. The well leg aquino was also adjusted to relieve pressure on her leg. She was taken to recovery in stable condition. There were no specimens or complications. Counts were correct at the end of the case. Blood loss was approximately 250 mL. An H\T\H was checked intraoperatively which was within the acceptable range by anesthesia. At the conclusion of the operation, I spoke to patient's family and informed them of my findings. Postoperative instructions were given. I discussed with them the bleeding. She will be weightbearing as tolerated. Plan for an acute care rehab or alf facility. She will be started on Lovenox tomorrow and will have a routine course of postop IV antibiotics and physical therapy. Components inserted were the [employer]ynthe[employer] right long troch nail 11 x 130 degree 360 mm length with a 5 x 44 mm distal interlocking screw and an 11 x 80 helical blade. The tip apex index was less than 20. The lag bolt was advanced within 5-7 mm of subchondral bone in the central?central portion on the AP and lateral views, the fracture was anatomically reduced. I attest to the content of the Intraoperative Record and any orders documented therein. Any exceptio ns are noted below.
--- NOTE | 2016-08-27 14:00 | Anesthesiology Progress Note ---
Anesthesia Post Op Note Date & Time Aug 27, 2016 at 14:00 Vital Signs Pain Intensity: 0 Vital Signs Past 12 Hours Date Time Temp Pulse Resp B/P Pulse Ox O2 Delivery O2 Flow Rate FiO2 08/27/16 13:34 99 16 104/66 98 Nasal Cannula 2 08/27/16 13:20 37.1 99 16 113/57 97 Nasal Cannula 2 08/27/16 13:10 37.1 94 16 79/52 98 Nasal Cannula 2 08/27/16 13:00 94 16 115/54 98 Nasal Cannula 2 08/27/16 12:50 79 20 120/57 98 Nasal Cannula 2 08/27/16 12:40 79 14 83/39 98 Nasal Cannula 2 08/27/16 12:30 83 14 85/48 100 Mask 10 08/27/16 12:20 85 14 113/53 100 Mask 10 08/27/16 12:14 36.5 84 14 113/53 100 Mask 10 08/27/16 08:39 37.4 94 18 141/60 93 Nasal Cannula 3 08/27/16 07:30 Nasal Cannula 2.0 08/27/16 06:55 37.1 91 20 136/69 96 Room Air Notes Mental Status: alert / awake / arousable, participated in evaluation Pt Amnestic to Procedure: Yes Nausea / Vomiting: adequately controlled Pain: adequately controlled Airway Patency, RR, SpO2: stable & adequate BP & HR: stable & adequate Hydration State: stable & adequate Anesthetic Complications: no major complications apparent
[2016-08-27] MEDS: SODIUM CHLORIDE 0.45% 1000ML 1,000 ML IV SCH (14:19)
[2016-08-27] MEDS: ASPIRIN 81 MG ECTAB PO SCH (14:20)
[2016-08-27] MEDS: FERROUS GLUCONATE 324 MG TAB PO SCH ×2 (14:24→18:12)
--- NOTE | 2016-08-27 16:15 | Progress Note ---
Orthopedic SOAP Note Subjective Date of Service: Aug 27, 2016. Post OP Day: 0 Reports: feeling well, pain controlled w PO medications, Denies: SOB, calf pain , chest pain, complaints, light headedness, nausea / vomiting, using THREADING MACHINE SETTER Additional Notes: patient requires the use of a medical apparatus model maker, speaks very little Salvadorean I spoke with the patient and her [id number], I believe, and the patient has no current complaints. Very pleased with her care and symptoms thus far. Problem List Medical Problems: (1) Fall Status: Acute (2) Hip fracture, right Status: Acute Objective calves soft nontender, N/V intact, capillary refill less than 2 sec., dressing C /D/I, A&O x3, toes mobile Date Time Temp Pulse Resp B/P Pulse Ox O2 Delivery O2 Flow Rate FiO2 08/27/16 16:02 36.5 99 16 112/69 99 Nasal Cannula 2.0 08/27/16 14:55 99 17 112/65 97 Nasal Cannula 2.0 08/27/16 14:23 102 18 109/55 98 Nasal Cannula 2.0 08/27/16 13:55 36.6 97 16 107/55 95 Nasal Cannula 2.0 08/27/16 13:55 Nasal Cannula 2.0 08/27/16 13:34 99 16 104/66 98 Nasal Cannula 2 08/27/16 13:20 37.1 99 16 113/57 97 Nasal Cannula 2 08/27/16 13:10 37.1 94 16 79/52 98 Nasal Cannula 2 08/27/16 13:00 94 16 115/54 98 Nasal Cannula 2 08/27/16 12:50 79 20 120/57 98 Nasal Cannula 2 08/27/16 12:40 79 14 83/39 98 Nasal Cannula 2 08/27/16 12:30 83 14 85/48 100 Mask 10 08/27/16 12:20 85 14 113/53 100 Mask 10 08/27/16 12:14 36.5 84 14 113/53 100 Mask 10 08/27/16 08:39 37.4 94 18 141/60 93 Nasal Cannula 3 08/27/16 07:30 Nasal Cannula 2.0 08/27/16 06:55 37.1 91 20 136/69 96 Room Air 08/26/16 23:32 36.4 89 18 157/69 95 Nasal Cannula 2.0 08/26/16 20:41 36.4 82 18 124/76 94 Nasal Cannula 2.0 08/26/16 20:00 36.4 82 18 124/76 94 Nasal Cannula 2.0 08/26/16 19:54 95 Nasal Cannula 2.0 08/26/16 19:53 88 Room Air 08/26/16 19:51 91 18 133/64 91 08/26/16 18:42 80 16 155/83 99 08/26/16 17:07 36.8 80 18 178/80 97 Room Air Laboratory Results 24 Hours: Test 08/26/16 17:36 08/27/16 06:09 08/27/16 11:48 Hematocrit 38.9 % 35.4 % 32.5 % Hemoglobin 13.4 g/dL 11.8 g/dL 10.6 g/dL Prothromb Time International Ratio 0.9 Prothrombin Time 10.1 SECONDS Assessment Post op day #0 Right hip long trochanteric nail Plan Continue post op care Patient admitted to Dr. Santana's service Appreciate medicine's input DVT prophylaxis with Lovenox 40mg q am, first dose to be given 08/28/16 0900 Pain control with prescribed medications Ice right hip WBAT rights L.E. with walker and assist PT/OT Resume diet Dressing to be changed post-op day #2 Labs and vitals reviewed Will discuss findings further with Dr. Santana
[2016-08-27] MEDS: SENNA 8.6 MG TAB PO SCH (20:16)
[2016-08-27] MEDS: OXYCODONE/ACETAMINOPHEN 5-325 TAB PO PRN (20:17)
[2016-08-27] MEDS: DOCUSATE SODIUM 100 MG CAP PO SCH (21:18)
[2016-08-28] VITALS (20 sets, daily range): BP systolic 90–156; BP diastolic 52–73; PULSE 82–112; TEMP 36.3–37.4; O2SAT 92–100
[2016-08-28] MEDS: OXYCODONE/ACETAMINOPHEN 5-325 TAB PO PRN ×2 (00:16→13:44)
[2016-08-28] MEDS ORDERED: SODIUM CHLORIDE 0.9% 500ML 500 ML IV STA (02:50)
[2016-08-28] MEDS: SODIUM CHLORIDE 0.45% 1000ML 1,000 ML IV SCH ×2 (06:20→19:34)
--- NOTE | 2016-08-28 08:12 | Progress Note ---
Orthopedic SOAP Note Subjective Date of Service: Aug 28, 2016. Post OP Day: 1 Reports: feeling well, pain controlled w PO medications, Denies: SOB, calf pain , chest pain, complaints, light headedness, nausea / vomiting, using SENIOR IT SPECIALIST Additional Notes: patient is with her son today. states she stood last evening with assistance x 2. will attempt ambulating today with PT, walker, and assist. overall, reports pain improving and pleased with care thus far. Problem List Medical Problems: (1) Fall Status: Acute (2) Hip fracture, right Status: Acute Objective calves soft nontender, N/V intact, capillary refill less than 2 sec., dressing C /D/I, A&O x3, toes mobile patient reports mild tenderness with gentle palpation around the surgical sites. Thigh is supple, no significant swelling. Date Time Temp Pulse Resp B/P Pulse Ox O2 Delivery O2 Flow Rate FiO2 08/28/16 06:53 36.7 97 17 109/53 98 Nasal Cannula 2.0 08/28/16 04:32 107/66 08/28/16 02:45 36.4 82 16 90/53 100 Nasal Cannula 2.0 08/28/16 00:10 Nasal Cannula 2.0 08/27/16 22:57 36.4 104 16 92/50 98 Nasal Cannula 2.0 08/27/16 19:42 36.8 106 16 124/69 97 Nasal Cannula 2.0 08/27/16 17:06 36.7 101 16 106/63 99 Nasal Cannula 2.0 08/27/16 16:02 36.5 99 16 112/69 99 Nasal Cannula 2.0 08/27/16 14:55 99 17 112/65 97 Nasal Cannula 2.0 08/27/16 14:23 102 18 109/55 98 Nasal Cannula 2.0 08/27/16 13:55 36.6 97 16 107/55 95 Nasal Cannula 2.0 08/27/16 13:55 Room Air 08/27/16 13:55 Nasal Cannula 2.0 08/27/16 13:34 99 16 104/66 98 Nasal Cannula 2 08/27/16 13:20 37.1 99 16 113/57 97 Nasal Cannula 2 08/27/16 13:10 37.1 94 16 79/52 98 Nasal Cannula 2 08/27/16 13:00 94 16 115/54 98 Nasal Cannula 2 08/27/16 12:50 79 20 120/57 98 Nasal Cannula 2 08/27/16 12:40 79 14 83/39 98 Nasal Cannula 2 08/27/16 12:30 83 14 85/48 100 Mask 10 08/27/16 12:20 85 14 113/53 100 Mask 10 08/27/16 12:14 36.5 84 14 113/53 100 Mask 10 08/27/16 08:39 37.4 94 18 141/60 93 Nasal Cannula 3 Laboratory Results 24 Hours: Test 08/27/16 11:48 08/28/16 04:44 Hematocrit 32.5 % Hemoglobin 10.6 g/dL Additional Notes: LABS PENDING Assessment Post op day #1 Right hip long trochanteric nail Plan Continue post op care Patient admitted to Dr. Santana's service Appreciate medicine's input DVT prophylaxis with Lovenox 40mg q am, first dose to be given 08/28/16 0900 Pain control with prescribed medications Ice right hip WBAT rights L.E. with walker and assist PT/OT Resume diet Dressing to be changed AM post-op day #2 (08/29/16) Labs and vitals to be reviewed Discharge planning: looking at [facility] Will discuss findings further with Dr. Santana
[2016-08-28 08:47] LABS: PROTHROMBIN TIME (PATIENT) 10.9 SECONDS (9.0-12.0)
[2016-08-28 09:07] LABS: BUN/CREATININE RATIO 22.1 (10-20); CALCIUM 8.1 mg/dl (8.5-10.1); CREATININE 0.48 mg/dl (0.60-1.20); POTASSIUM 3.7 mmol/L (3.5-5.1)
[2016-08-28 09:15] LABS: MEAN CELL VOLUME 87.7 fL (80-100); MEAN CORPUSCULAR HEMOGLOBIN 29.8 pg (25-34); MEAN PLATELET VOLUME 10.4 fL (7.4-10.4); PLATELET COUNT 128 K/uL (130-400); RED BLOOD COUNT 2.28 M/uL (4.2-5.4); WHITE BLOOD COUNT 13.26 K/uL (4.8-10.8)
--- NOTE | 2016-08-28 09:33 | Anesthesiology Progress Note ---
Anesthesia Post Op Note Date & Time Aug 28, 2016 at 09:33 Vital Signs Vital Signs Past 12 Hours Date Time Temp Pulse Resp B/P Pulse Ox O2 Delivery O2 Flow Rate FiO2 08/28/16 06:53 36.7 97 17 109/53 98 Nasal Cannula 2.0 08/28/16 04:32 107/66 08/28/16 02:45 36.4 82 16 90/53 100 Nasal Cannula 2.0 08/28/16 00:10 Nasal Cannula 2.0 08/27/16 22:57 36.4 104 16 92/50 98 Nasal Cannula 2.0 Notes Mental Status: alert / awake / arousable, participated in evaluation Pt Amnestic to Procedure: Yes Nausea / Vomiting: adequately controlled Pain: adequately controlled Airway Patency, RR, SpO2: stable & adequate BP & HR: stable & adequate Hydration State: stable & adequate Anesthetic Complications: no major complications apparent
[2016-08-28] MEDS: FERROUS GLUCONATE 324 MG TAB PO SCH ×3 (09:40→18:13)
[2016-08-28] MEDS: ASPIRIN 81 MG ECTAB PO SCH (09:40)
[2016-08-28] MEDS: PANTOprazole SOD 40 MG TAB PO SCH (09:40)
[2016-08-28] MEDS: DOCUSATE SODIUM 100 MG CAP PO SCH ×2 (09:40→21:05)
[2016-08-28] MEDS: MULTIVITAMIN TAB PO SCH (09:40)
[2016-08-28] MEDS: ENOXAPARIN 40 MG/0.4 ML SYR SQ SCH (09:45)
[2016-08-28 11:31] LABS: HEMATOCRIT 19.5 % (37-47)
--- NOTE | 2016-08-28 13:02 | Progress Note ---
Subjective Date of Service: Aug 28, 2016. Subjective Pt evaluation today including: conversation w/ patient, physical exam, chart review, lab review, review of studies, review of inpatient medication list Problem List Medical Problems: (1) Fall Status: Acute (2) Hip fracture, right Status: Acute Review of Systems Constitutional: No chills, No fever Respiratory: No cough, No dyspnea on exertion, No shortness of breath, No sputum, No wheezing Cardiac: No chest pain, No orthopnea Abdomen: No constipation, No diarrhea, No nausea, No pain, No vomiting Musculoskeletal: No joint pain, No muscle pain Female : No dysuria, No urinary frequency Objective Vital Signs Date Time Temp Pulse Resp B/P Pulse Ox O2 Delivery O2 Flow Rate FiO2 08/28/16 12:30 36.8 103 16 108/65 92 08/28/16 12:14 36.8 100 16 104/57 97 08/28/16 12:04 36.8 104 16 113/65 08/28/16 10:59 36.6 105 16 117/67 99 Nasal Cannula 2.0 08/28/16 07:50 Room Air 08/28/16 06:53 36.7 97 17 109/53 98 Nasal Cannula 2.0 08/28/16 04:32 107/66 08/28/16 02:45 36.4 82 16 90/53 100 Nasal Cannula 2.0 08/28/16 00:10 Nasal Cannula 2.0 08/27/16 22:57 36.4 104 16 92/50 98 Nasal Cannula 2.0 08/27/16 19:42 36.8 106 16 124/69 97 Nasal Cannula 2.0 08/27/16 17:06 36.7 101 16 106/63 99 Nasal Cannula 2.0 08/27/16 16:02 36.5 99 16 112/69 99 Nasal Cannula 2.0 08/27/16 14:55 99 17 112/65 97 Nasal Cannula 2.0 08/27/16 14:23 102 18 109/55 98 Nasal Cannula 2.0 08/27/16 13:55 36.6 97 16 107/55 95 Nasal Cannula 2.0 08/27/16 13:55 Room Air 08/27/16 13:55 Nasal Cannula 2.0 08/27/16 13:34 99 16 104/66 98 Nasal Cannula 2 08/27/16 13:20 37.1 99 16 113/57 97 Nasal Cannula 2 08/27/16 13:10 37.1 94 16 79/52 98 Nasal Cannula 2 Physical Exam General Appearance: WD/WN, no apparent distress Neck: supple, no adenopathy Respiratory/Chest: lungs clear, normal breath sounds Cardiovascular: no edema, no gallop Abdomen: non tender, soft Neurologic/Psychiatric: alert, oriented x 3 Laboratory Results Last 24 Hours Test 08/28/16 08:01 08/28/16 11:06 White Blood Count 13.26 K/uL Red Blood Count 2.28 M/uL Hemoglobin 6.8 g/dL 6.7 g/dL Hematocrit 20.0 % 19.5 % Mean Corpuscular Volume 87.7 fL Mean Corpuscular Hemoglobin 29.8 pg Mean Corpuscular Hemoglobin Concent 34.0 g/dl RDW Standard Deviation 45.8 fL RDW Coefficient of Variation 14.2 % Platelet Count 128 K/uL Mean Platelet Volume 10.4 fL Prothrombin Time 10.9 SECONDS Prothromb Time International Ratio 1.0 Sodium Level 137 mmol/L Potassium Level 3.7 mmol/L Chloride Level 103 mmol/L Carbon Dioxide Level 26 mmol/L Anion Gap 8.0 mmol/L Blood Urea Nitrogen 11 mg/dl Creatinine 0.48 mg/dl Est Creatinine Clear Calc Drug Dose 65.5 ml/min Estimated GFR () 102.2 Estimated GFR (Non- 88.2 BUN/Creatinine Ratio 22.1 Random Glucose 134 mg/dl Calcium Level 8.1 mg/dl Assessment and Plan 86 yo female with intertrochanteric fracture right hip. Intertrochanteric fracture of right hip - management as per primary orthopedic team Acute blood loss anemia s/p nail fixation - Will transfuse 2 units PRBCs on 08/28/16 New early onset systolic murmur on examination - ECHO completed: * Left ventricular systolic function is normal. * No regional wall motion abnormalities noted. * Ejection Fraction = 65-70%. * There is borderline concentric left ventricular hypertrophy. * Grade I diastolic dysfunction, (abnormal relaxation pattern). * Aortic valve sclerosis bordering on mild stenosis. * There is mild tricuspid regurgitation. Pre operative clearance Revised Cardiac Risk Index for Pre-Operative Risk - 0 Aspirin can be stopped as she takes it for primary prevention only if required by the primary orthopedic team. VTE Prophylaxis - as per primary orthopedic team Code - Full as per patient wishes Disposition - managed by primary ortho team
--- NOTE | 2016-08-28 18:29 | PROGRESS NOTE ---
DATE: 08/28/2016 SUBJECTIVE: The patient is resting comfortably in bed. She denies through her son who is interpreting any chest pains or shortness of breath. She has not been lightheaded or dizzy. She has minimal to no pain in her hip at rest, but does have pain if she tries to move her right hip. OBJECTIVE: She is afebrile. Her vital signs are stable. She is borderline tachycardic. Her sats are good on 1-2 liters. She has a 1+ dorsalis pedis pulse with normal sensation and 5/5 ankle and toe plantar flexion and dorsiflexion. Her thigh is soft and supple without significant swelling. Her dressings show minimal drainage. There is not any evidence of a tense hematoma in her right thigh. DATA: Her labs are noted, she had a markedly low hemoglobin and hematocrit and received 2 units of blood today. Her INR is within normal limits. Her PRP is noted. IMPRESSION: 1. Acute blood loss anemia. 2. Right hip intertrochanteric fracture. PLAN: Findings discussed with patient and family. We will try to sit her tonight with nursing. She can otherwise resume PT tomorrow, weightbearing as tolerated with walker. Will need social sciences department chair for assistance of disposition, especially since the patient does not have insurance or citizenship. She will continue anticoagulation with Lovenox and mechanical devices for DVT prophylaxis. We will check labs in the morning.
[2016-08-28] MEDS: SENNA 8.6 MG TAB PO SCH (21:05)
[2016-08-29] MEDS: SODIUM CHLORIDE 0.45% 1000ML 1,000 ML IV SCH (00:23)
[2016-08-29 03:04] VITALS: PULSE 106
[2016-08-29] MEDS ORDERED: COUGH DROP (SUGAR FREE) LOZ 24 LOZ/1 BOX ONE (05:46)
[2016-08-29] MEDS ORDERED: COUGH DROP (SUGAR FREE) LOZ 24 LOZ/1 BOX PO PRN (06:15)
[2016-08-29 06:34] LABS: HEMATOCRIT 28.8 % (37-47); MEAN CORPUSCULAR HEMOGLOBIN 28.8 pg (25-34); MEAN CORPUSCULAR HGB CONC 34.7 g/dl (32-36); MEAN PLATELET VOLUME 10.1 fL (7.4-10.4); PLATELET COUNT 142 K/uL (130-400); RED BLOOD COUNT 3.47 M/uL (4.2-5.4)
[2016-08-29 06:40] LABS: PROTHROMBIN TIME (PATIENT) 10.3 SECONDS (9.0-12.0)
[2016-08-29 07:01] LABS: BUN/CREATININE RATIO 15.8 (10-20); CREATININE 0.57 mg/dl (0.60-1.20); POTASSIUM 3.2 mmol/L (3.5-5.1)
[2016-08-29] MEDS ORDERED: BISACODYL 5 MG TABEC PO STA (07:57)
[2016-08-29 08:01] VITALS: BP 152/78; PULSE 105; TEMP 36.4; O2SAT 94
[2016-08-29] MEDS ORDERED: POTASSIUM CHLORIDE 20 MEQ TABCR PO STA (08:05)
[2016-08-29] MEDS: MULTIVITAMIN TAB PO SCH (08:41)
[2016-08-29] MEDS: FERROUS GLUCONATE 324 MG TAB PO SCH ×3 (08:42→17:36)
[2016-08-29] MEDS: DOCUSATE SODIUM 100 MG CAP PO SCH ×2 (08:42→21:27)
[2016-08-29] MEDS: PANTOprazole SOD 40 MG TAB PO SCH (08:42)
[2016-08-29] MEDS: ASPIRIN 81 MG ECTAB PO SCH (08:42)
[2016-08-29] MEDS: OXYCODONE/ACETAMINOPHEN 5-325 TAB PO PRN (08:43)
--- NOTE | 2016-08-29 09:07 | Progress Note ---
Orthopedic SOAP Note Subjective Date of Service: Aug 29, 2016. Post OP Day: 2 Reports: feeling well, pain controlled w PO medications, Denies: SOB, calf pain , chest pain, complaints, light headedness, nausea / vomiting, using [employer] Additional Notes: patient received 2 units of blood 08/28/16 Problem List Medical Problems: (1) Fall Status: Acute (2) Hip fracture, right Status: Acute Objective calves soft nontender, N/V intact, capillary refill less than 2 sec., dressing C /D/I (minimal bleeding on the dressing), incision C/D/I (no erythema or swelling ), A&O x3, toes mobile patient's son is with her this AM translating Date Time Temp Pulse Resp B/P Pulse Ox O2 Delivery O2 Flow Rate FiO2 08/29/16 08:01 36.4 105 14 152/78 94 Room Air 08/29/16 07:45 Nasal Cannula 1.0 08/29/16 03:04 106 08/28/16 23:45 Room Air 08/28/16 23:35 37.1 112 16 156/73 93 Nasal Cannula 1.0 08/28/16 20:32 36.5 107 17 126/69 98 Room Air 08/28/16 18:57 37.1 101 17 124/69 97 1.0 08/28/16 18:00 107 16 101/58 94 1.0 08/28/16 17:30 37.1 100 17 112/56 98 1.0 08/28/16 17:02 36.7 104 17 109/52 97 1.0 08/28/16 16:46 36.3 102 17 106/54 95 Nasal Cannula 2.0 08/28/16 16:45 36.3 102 17 106/54 97 1.0 08/28/16 16:29 37.4 104 18 111/58 95 08/28/16 16:00 Nasal Cannula 1.0 08/28/16 15:31 36.7 108 17 103/57 95 1.0 08/28/16 14:29 36.9 106 17 106/52 98 08/28/16 13:34 36.8 110 16 107/65 98 1.0 08/28/16 13:00 37.3 110 16 110/63 96 1.0 08/28/16 12:30 36.8 103 16 108/65 92 08/28/16 12:14 36.8 100 16 104/57 97 08/28/16 12:04 36.8 104 16 113/65 08/28/16 10:59 36.6 105 16 117/67 99 Nasal Cannula 2.0 Laboratory Results 24 Hours: Test 08/28/16 11:06 08/29/16 06:25 Hematocrit 19.5 % 28.8 % Hemoglobin 6.7 g/dL 10.0 g/dL Prothromb Time International Ratio 1.0 Prothrombin Time 10.3 SECONDS Assessment Post op day #2 Right hip long trochanteric nail Plan Continue post op care Patient admitted to Dr. Santana's service Appreciate medicine's input DVT prophylaxis with Lovenox 40mg q am, first dose given 08/28/16 0900 Pain control with prescribed medications Ice right hip WBAT rights L.E. with walker and assist PT/OT Resume diet Dressing changed Labs and vitals reviewed, H&H much improved [facility] Will discuss findings further with Dr. Santana
[2016-08-29] MEDS: ENOXAPARIN 40 MG/0.4 ML SYR SQ SCH (09:09)
[2016-08-29 09:31] VITALS: O2SAT 94
[2016-08-29 09:38] VITALS: BP 147/79; PULSE 106; O2SAT 96
--- NOTE | 2016-08-29 10:51 | Progress Note ---
Subjective Date of Service: Aug 29, 2016. Subjective Pt evaluation today including: conversation w/ patient, physical exam, chart review, lab review, review of studies, review of inpatient medication list Problem List Medical Problems: (1) Fall Status: Acute (2) Hip fracture, right Status: Acute Review of Systems Constitutional: No chills, No fever Respiratory: No cough, No dyspnea on exertion, No shortness of breath, No sputum, No wheezing Cardiac: No chest pain, No orthopnea Abdomen: No constipation, No diarrhea, No nausea, No pain, No vomiting Musculoskeletal: + joint pain, No muscle pain Female : No dysuria, No urinary frequency Neurologic: No paralysis, No weakness Objective Vital Signs Date Time Temp Pulse Resp B/P Pulse Ox O2 Delivery O2 Flow Rate FiO2 08/29/16 09:31 94 Room Air 08/29/16 08:01 36.4 105 14 152/78 94 Room Air 08/29/16 07:45 Nasal Cannula 1.0 08/29/16 03:04 106 08/28/16 23:45 Room Air 08/28/16 23:35 37.1 112 16 156/73 93 Nasal Cannula 1.0 08/28/16 20:32 36.5 107 17 126/69 98 Room Air 08/28/16 18:57 37.1 101 17 124/69 97 1.0 08/28/16 18:00 107 16 101/58 94 1.0 08/28/16 17:30 37.1 100 17 112/56 98 1.0 08/28/16 17:02 36.7 104 17 109/52 97 1.0 08/28/16 16:46 36.3 102 17 106/54 95 Nasal Cannula 2.0 08/28/16 16:45 36.3 102 17 106/54 97 1.0 08/28/16 16:29 37.4 104 18 111/58 95 08/28/16 16:00 Nasal Cannula 1.0 08/28/16 15:31 36.7 108 17 103/57 95 1.0 08/28/16 14:29 36.9 106 17 106/52 98 08/28/16 13:34 36.8 110 16 107/65 98 1.0 08/28/16 13:00 37.3 110 16 110/63 96 1.0 08/28/16 12:30 36.8 103 16 108/65 92 08/28/16 12:14 36.8 100 16 104/57 97 08/28/16 12:04 36.8 104 16 113/65 08/28/16 10:59 36.6 105 16 117/67 99 Nasal Cannula 2.0 Physical Exam General Appearance: WD/WN, no apparent distress Neck: supple, no adenopathy Respiratory/Chest: lungs clear, normal breath sounds Cardiovascular: no edema, no gallop, + tachycardia Abdomen: non tender, soft, no organomegaly Neurologic/Psychiatric: alert, normal mood/affect Laboratory Results Last 24 Hours Test 08/28/16 11:06 08/29/16 06:25 08/29/16 10:34 Hemoglobin 6.7 g/dL 10.0 g/dL Hematocrit 19.5 % 28.8 % White Blood Count 15.10 K/uL Red Blood Count 3.47 M/uL Mean Corpuscular Volume 83.0 fL Mean Corpuscular Hemoglobin 28.8 pg Mean Corpuscular Hemoglobin Concent 34.7 g/dl RDW Standard Deviation 43.5 fL RDW Coefficient of Variation 14.4 % Platelet Count 142 K/uL Mean Platelet Volume 10.1 fL Prothrombin Time 10.3 SECONDS Prothromb Time International Ratio 1.0 Sodium Level 141 mmol/L Potassium Level 3.2 mmol/L Chloride Level 107 mmol/L Carbon Dioxide Level 25 mmol/L Anion Gap 9.0 mmol/L Blood Urea Nitrogen 9 mg/dl Creatinine 0.57 mg/dl Est Creatinine Clear Calc Drug Dose 55.1 ml/min Estimated GFR () 96.6 Estimated GFR (Non- 83.4 BUN/Creatinine Ratio 15.8 Random Glucose 117 mg/dl Calcium Level 8.0 mg/dl Assessment and Plan 86 yo female with intertrochanteric fracture right hip. Intertrochanteric fracture of right hip - Management as per primary orthopedic team - Awaiting rehab Leukocytosis - Likely reactive in nature, cont to monitor, no role for antibx at this time Acute blood loss anemia s/p nail fixation - Transfused 2 units PRBCs on 08/28/16 New early onset systolic murmur on examination - ECHO completed: * Left ventricular systolic function is normal. * No regional wall motion abnormalities noted. * Ejection Fraction = 65-70%. * There is borderline concentric left ventricular hypertrophy. * Grade I diastolic dysfunction, (abnormal relaxation pattern). * Aortic valve sclerosis bordering on mild stenosis. * There is mild tricuspid regurgitation. Pre operative clearance Revised Cardiac Risk Index for Pre-Operative Risk - 0 Aspirin can be stopped as she takes it for primary prevention only if required by the primary orthopedic team. VTE Prophylaxis - as per primary orthopedic team Code - Full as per patient wishes Disposition - managed by primary ortho team
[2016-08-29 12:43] VITALS: BP 122/69; PULSE 103; TEMP 36.9; O2SAT 95
[2016-08-29] MEDS ORDERED: BISACODYL 10 MG SUPP PR PRN (15:30)
--- NOTE | 2016-08-29 15:45 | PROGRESS NOTE ---
DATE: 08/29/2016 No problems reported. She has been up with PT/OT. She is having a little bit of issues with fear and postural control, reassurance is given. Vital signs are stable. Slightly tachycardic. She denies chest pain, shortness of breath, lightheadedness urine output is good. Labs are noted. White count likely elevated to stress and blood transfusion. Hematocrit is 29. PRP is noted. Potassium low and has been replaced. She is able to actively extend her leg partly. Her thigh is soft with mild swelling. Her dressing is clean and dry. Her distal neurovascular function and sensation, motor and pulses are intact. She has acute blood loss anemia and a right hip intertrochanteric fracture. PLAN: For her to be transferred to [facility] when this is approved and a bed is available. In the meantime, she will continue with rehab and her DVT prophylaxis, suppository to go to the bathroom.
[2016-08-29] MEDS: SENNA 8.6 MG TAB PO SCH (21:27)
[2016-08-29 23:07] VITALS: BP 146/76; PULSE 103; TEMP 36.9; O2SAT 95
[2016-08-30 06:25] LABS: MEAN CELL VOLUME 85.8 fL (80-100); MEAN CORPUSCULAR HEMOGLOBIN 29.4 pg (25-34); MEAN CORPUSCULAR HGB CONC 34.2 g/dl (32-36); MEAN PLATELET VOLUME 10.5 fL (7.4-10.4); PLATELET COUNT 161 K/uL (130-400); RED BLOOD COUNT 3.03 M/uL (4.2-5.4); WHITE BLOOD COUNT 13.05 K/uL (4.8-10.8)
[2016-08-30 06:32] LABS: INR 0.9 (0.9-1.1); PROTHROMBIN TIME (PATIENT) 10.1 SECONDS (9.0-12.0)
[2016-08-30 07:32] VITALS: BP 151/79; PULSE 108; TEMP 37; O2SAT 95
[2016-08-30 08:38] LABS: BUN/CREATININE RATIO 21.1 (10-20); CALCIUM 7.8 mg/dl (8.5-10.1); CREATININE 0.46 mg/dl (0.60-1.20); POTASSIUM 3.6 mmol/L (3.5-5.1)
[2016-08-30] MEDS: FERROUS GLUCONATE 324 MG TAB PO SCH ×3 (09:04→17:45)
[2016-08-30] MEDS: DOCUSATE SODIUM 100 MG CAP PO SCH ×2 (09:04→20:35)
[2016-08-30] MEDS: PANTOprazole SOD 40 MG TAB PO SCH (09:04)
[2016-08-30] MEDS: ASPIRIN 81 MG ECTAB PO SCH (09:05)
[2016-08-30] MEDS: ENOXAPARIN 40 MG/0.4 ML SYR SQ SCH (09:05)
[2016-08-30] MEDS: MULTIVITAMIN TAB PO SCH (09:05)
--- NOTE | 2016-08-30 12:05 | Progress Note ---
Subjective Date of Service: Aug 30, 2016. Subjective Pt evaluation today including: conversation w/ patient, conversation w/ family , physical exam, chart review, lab review, review of studies, review of inpatient medication list Problem List Medical Problems: (1) Fall Status: Acute (2) Hip fracture, right Status: Acute Review of Systems Constitutional: No chills, No fever Respiratory: No cough, No dyspnea on exertion, No shortness of breath, No sputum, No wheezing Cardiac: No chest pain, No orthopnea Abdomen: No constipation, No diarrhea, No nausea, No pain, No vomiting Musculoskeletal: No joint pain, No muscle pain Female : No dysuria, No urinary frequency Objective Vital Signs Date Time Temp Pulse Resp B/P Pulse Ox O2 Delivery O2 Flow Rate FiO2 08/30/16 07:35 Room Air 08/30/16 07:32 37.0 108 18 151/79 95 Room Air 08/29/16 23:07 36.9 103 18 146/76 95 Room Air 08/29/16 22:00 Room Air 08/29/16 17:10 Room Air 08/29/16 12:43 36.9 103 16 122/69 95 Room Air Physical Exam General Appearance: WD/WN, no apparent distress Neck: supple, no adenopathy, thyroid normal Respiratory/Chest: lungs clear, normal breath sounds Cardiovascular: no edema, no gallop Abdomen: non tender, soft Neurologic/Psychiatric: alert, oriented x 3 Laboratory Results Last 24 Hours Test 08/30/16 06:05 08/30/16 08:05 White Blood Count 13.05 K/uL Red Blood Count 3.03 M/uL Hemoglobin 8.9 g/dL Hematocrit 26.0 % Mean Corpuscular Volume 85.8 fL Mean Corpuscular Hemoglobin 29.4 pg Mean Corpuscular Hemoglobin Concent 34.2 g/dl RDW Standard Deviation 45.4 fL RDW Coefficient of Variation 14.6 % Platelet Count 161 K/uL Mean Platelet Volume 10.5 fL Prothrombin Time 10.1 SECONDS Prothromb Time International Ratio 0.9 Sodium Level 142 mmol/L Potassium Level 3.6 mmol/L Chloride Level 108 mmol/L Carbon Dioxide Level 23 mmol/L Anion Gap 11.0 mmol/L Blood Urea Nitrogen 10 mg/dl Creatinine 0.46 mg/dl Est Creatinine Clear Calc Drug Dose 68.3 ml/min Estimated GFR () 103.7 Estimated GFR (Non- 89.4 BUN/Creatinine Ratio 21.1 Random Glucose 114 mg/dl Calcium Level 7.8 mg/dl Assessment and Plan 86 yo female with intertrochanteric fracture right hip. Intertrochanteric fracture of right hip - Management as per primary orthopedic team - Awaiting rehab Leukocytosis - Likely reactive in nature, cont to monitor, no role for antibx at this time Acute blood loss anemia s/p nail fixation - Transfused 2 units PRBCs on 08/28/16 New early onset systolic murmur on examination - ECHO completed: * Left ventricular systolic function is normal. * No regional wall motion abnormalities noted. * Ejection Fraction = 65-70%. * There is borderline concentric left ventricular hypertrophy. * Grade I diastolic dysfunction, (abnormal relaxation pattern). * Aortic valve sclerosis bordering on mild stenosis. * There is mild tricuspid regurgitation. Pre operative clearance Revised Cardiac Risk Index for Pre-Operative Risk - 0 Aspirin can be stopped as she takes it for primary prevention only if required by the primary orthopedic team. VTE Prophylaxis - as per primary orthopedic team Code - Full as per patient wishes Disposition - managed by primary ortho team WILL SIGN OFF AT THIS TIME, THANK YOU FOR THE CONSULT
--- NOTE | 2016-08-30 13:19 | Progress Note ---
Orthopedic SOAP Note Subjective Date of Service: Aug 30, 2016. Post OP Day: 3 Reports: feeling well, pain controlled w PO medications, Denies: SOB, calf pain , chest pain, complaints, light headedness, nausea / vomiting, using [employer] Additional Notes: reports physical therapy going well, ambulated 27 feet, doing well sitting at bedside chair Problem List Medical Problems: (1) Fall Status: Acute (2) Hip fracture, right Status: Acute Objective calves soft nontender, N/V intact, capillary refill less than 2 sec., dressing C /D/I, incision C/D/I, A&O x3, toes mobile, CMS intact Date Time Temp Pulse Resp B/P Pulse Ox O2 Delivery O2 Flow Rate FiO2 08/30/16 07:35 Room Air 08/30/16 07:32 37.0 108 18 151/79 95 Room Air 08/29/16 23:07 36.9 103 18 146/76 95 Room Air 08/29/16 22:00 Room Air 08/29/16 17:10 Room Air Laboratory Results 24 Hours: Test 08/30/16 06:05 Hematocrit 26.0 % Hemoglobin 8.9 g/dL Prothromb Time International Ratio 0.9 Prothrombin Time 10.1 SECONDS Assessment Post op day #3 Right hip long trochanteric nail Plan Continue post op care Patient admitted to Dr. Santana's service Appreciate medicine's input DVT prophylaxis with Lovenox 40mg q am, first dose given 08/28/16 0900 Pain control with prescribed medications Ice right hip WBAT rights L.E. with walker and assist PT/OT Resume diet Dressing changed Labs and vitals reviewed, tachycardia noted, H&H & Discharge planning: accepted to [facility], bed available Will follow up with Dr. Santana for staple removal at [facility] on 09/11/16 at 9:15am Will discuss findings further with Dr. Santana
[2016-08-30] MEDS ORDERED: ENOX40IN SQ (15:05)
[2016-08-30] MEDS ORDERED: OXYC-57 PO (15:05)
--- NOTE | 2016-08-30 15:12 | Discharge Instructions ---
Discharge Instructions Date of Service Aug 30, 2016. Admission Reason for Admission: Right Hip Fracture Discharge Discharge Diagnosis / Problem: s/p Right hip fracture long troch nail Discharge Goals Goal(s): Decrease discomfort, Improve function, Increase independence Activity Recommendations Activity Level: Self Positioning, OOB In Chair, Assistance Required, Bedside Commode Therapies: Physical Therapy, Weight Bearing Status, Occupational Therapy Weightbearing Status: Right weightbearing (as tolerated) Lifting Limitations: none Exercise/Sports Limitations: none Shower/Bathe: may shower/bathe in 3 days . Additional Information Patient informed of condition: Yes Advance Directives: Yes DNR: No Level of Care: Acute Rehab Communicable Disease: No Prognosis: Stable [place] Catheter: No Current Hospital Diet Patient's current hospital diet: Regular Diet Discharge Diet Recommended Diet: Regular Diet Procedures Procedures Performed: Right Hip Trochanteric Nail Pending Studies Studies pending at discharge: no Physician Orders On Transfer Special Precautions: weightbear as tolerated right lower extremity daily dressing changes do not submerge in a bath, may shower then keep covered Lovenox x 3 weeks for DVT prophylaxis followed by Aspirin 325mg BID for additional 3 weeks PT/OT daily ice right hip follow up with Dr. Santana 09/11/16 9:15am for staple removal Additional Orders: daily dressing changes POLST Discussion: without POLST completion Medical Emergencies . Who to Call and When: Medical Emergencies: If at any time you feel your situation is an emergency, please call 911 immediately. . Non-Emergent Contact Non-Emergency issues call your: Primary Care Provider . . "Provider Documentation" section prepared by Jez Nino. Core Measure Problem Core Measures: VTE VTE Core Measures Date of VTE Diagnosis: Aug 30, 2016 Time of VTE Diagnosis: 14:55 Reason no anticoag overlap I/P: Treatment provided - N/A Reason no anticoag overlap @DC: Treatment provided - N/A [place] Drug Monitoring Program Search Results: no issues identified
[2016-08-30 15:41] VITALS: BP 116/68; PULSE 113; TEMP 37.2; O2SAT 97
[2016-08-30 15:57] VITALS: PULSE 110
--- NOTE | 2016-08-30 16:17 | DISCHARGE SUMMARY ---
ADMISSION DIAGNOSIS: Right hip intertrochanteric fracture. POSTOPERATIVE DIAGNOSIS: Status post right hip long trochanteric nail. PROCEDURE: Right hip trochanteric nailing by Dr. Santana on 08/26/2016 at the [facility]. PERTINENT DISCHARGE MEDICATIONS: 1. Lovenox 40 mg daily x3 weeks for DVT prophylaxis. 2. Percocet 5/325 mg 1-2 tabs every 4-6 hours as needed for pain. ALLERGIES: No known drug allergies. HOSPITAL COURSE: Glenda is an 86-year-old female, who sustained a fall on Saturday08/26/2016. Surgery was performed on 08/27/[address] Santana. She tolerated the procedure very well. Her hospital course postoperatively did reveal some postoperative anemia that required 2 units of transfusion with packed red blood cells on 08/28/2016. The patient was followed by medicine and continued to be optimized accordingly. The patient's activity level has progressed and she began to ambulate with physical therapy, most recently walking 27 feet with a walker and assist. The patient's operative site and wound care maintained healthy status postoperatively. Dressing changes revealed minimal draining, incisions are clean, closed, dry and intact with trish well placed and intact. No significant swelling of the thigh. The patient overall is not overly tender with palpation around the right hip and she maintained her neurovascular status distally as well, pain controlled and overall very pleasant while evaluating postoperatively. VITAL SIGNS: Upon discharge revealed a temperature of 37, pulse of 108, respiratory rate of 18, blood pressure of 151/79, and pulse ox is 95% on room air. LABORATORY VALUES: Reveal on 08/30/2016 a white count of 13, hemoglobin of 9, hematocrit 26, platelet count of 161. Chemistry on 08/30/2016 revealed a sodium of 142, potassium 3.6, chloride of 108, carbon dioxide of 23, BUN is 10 and creatinine is 0.46, random glucose is 114, PT/INR is 10.1 and 0.9 respectively. DISCHARGE INSTRUCTIONS: 1. Transfer to [facility] on 08/31/2016. 2. Pain control with prescribed medications. 3. Deep venous thrombosis prophylaxis with Lovenox 40 mg daily x3 weeks postoperatively followed by an additional 3 weeks of aspirin 325 mg b.i.d. 4. Follow up with Dr. Santana at [facility] on 09/11/2016 at 9:15 a.m. for staple removal. 5. She may ice the right hip. 6. Weightbear as tolerated, right lower extremity with the assistance of a walker. 7. Physical therapy and occupational therapy daily. 8. Resume previous diet. 9. Any other questions or concerns, notify [facility] at [phone]. GUILLAUME
[2016-08-30 16:30] VITALS: O2SAT 97
[2016-08-30] MEDS: SENNA 8.6 MG TAB PO SCH (20:35)
[2016-08-30 23:03] VITALS: BP 114/71; PULSE 110; TEMP 37.1; O2SAT 96
[2016-08-31 06:55] VITALS: BP 118/69; PULSE 107; TEMP 36.8; O2SAT 95
[2016-08-31 06:57] LABS: HEMATOCRIT 23.7 % (37-47); MEAN CELL VOLUME 87.1 fL (80-100); MEAN CORPUSCULAR HEMOGLOBIN 29.4 pg (25-34); MEAN CORPUSCULAR HGB CONC 33.8 g/dl (32-36); PLATELET COUNT 230 K/uL (130-400); RED BLOOD COUNT 2.72 M/uL (4.2-5.4); WHITE BLOOD COUNT 9.54 K/uL (4.8-10.8)
[2016-08-31 07:07] LABS: INR 0.9 (0.9-1.1); PROTHROMBIN TIME (PATIENT) 10.1 SECONDS (9.0-12.0)
[2016-08-31] MEDS ORDERED: ASCA500 PO (08:47)
[2016-08-31] MEDS ORDERED: FRRG PO (08:47)
[2016-08-31] MEDS: ASPIRIN 81 MG ECTAB PO SCH (09:17)
[2016-08-31] MEDS: DOCUSATE SODIUM 100 MG CAP PO SCH (09:18)
[2016-08-31] MEDS: PANTOprazole SOD 40 MG TAB PO SCH (09:18)
[2016-08-31] MEDS: FERROUS GLUCONATE 324 MG TAB PO SCH (09:18)
[2016-08-31] MEDS: MULTIVITAMIN TAB PO SCH (09:18)
[2016-08-31] MEDS: ENOXAPARIN 40 MG/0.4 ML SYR SQ SCH (09:22)
[2016-08-31 10:11] LABS: HEMATOCRIT 25.8 % (37-47)
[2016-08-31 10:20] VITALS: BP 118/69; PULSE 107; TEMP 36.8; O2SAT 95
== END 2016-08-31 11:08 | DRG 481 ==
LOC: ENRESERVDT → ENRESERVTM → EDBD 16:58 → C.EDC 17:00 → C.MSW 18:47
PROVIDERS: ADMIT Orthopaedic Surgery Sports Medicine; ATTEND Physical Medicine & Rehabilitation Sports Medicine
PROC: 0QS636Z Reposition Right Upper Femur with Intramedullary Internal Fixation Device, Percutaneous Approach (ICD-10-PCS; principal; 2016-08-27 08:45)
DX: S72.141A Displaced intertrochanteric fracture of right femur, initial encounter for closed fracture (principal); D62 Acute posthemorrhagic anemia; I08.0 Rheumatic disorders of both mitral and aortic valves; D72.829 Elevated white blood cell count, unspecified; R31.9 Hematuria, unspecified; W10.9XXA Fall (on) (from) unspecified stairs and steps, initial encounter; Y92.009 Unspecified place in unspecified non-institutional (private) residence as the place of occurrence of the external cause; Z90.49 Acquired absence of other specified parts of digestive tract; Z79.82 Long term (current) use of aspirin

== ENCOUNTER → 2017-05-14 | Outpatient (CLI) | payer OTHER ==
[~2017-05-14] MED LIST changes: +ASCA500 PO; +ASPI1TAB83 PO; -ATV1 PO; +FRRG PO; -LATA0.009; -TIMO0.5S2; -UNKNOWN MEDS; -[UNRECOGNIZED DRUG - OTHER]
--- NOTE | 2017-05-14 18:05 | DIAGNOSTIC IMAGING REPORT ---
L KNEE 3 VIEWS CLINICAL HISTORY: M25.562 Left knee painleft pain COMPARISON: None. DISCUSSION: Mild degenerative change all major joint compartments. No significant joint effusion. Bony mineralization throughout is somewhat diminished. No abnormal depressed reaction. No evidence for significant soft tissue edema. IMPRESSION: Moderate degenerative change. Osteopenia. No acute bony abnormality. The above report was generated using voice recognition software. It may contain grammatical, syntax or spelling errors. Electronically signed by: Mahesh Hanson M.D. 05/14/2017 6:03 PM Dictated Date/Time: 05/14/2017 6:03 PM
== END | disposition home or self-care (01) ==
LOC: C.RAD 17:10
PROVIDERS: ATTEND Internal Medicine
DX: M25.562 Pain in left knee (principal)

== ENCOUNTER → 2017-05-30 | Outpatient (CLI) | payer OTHER ==
[2017-05-30 09:19] LABS: HEMATOCRIT 39.4 % (37-47); MEAN CELL VOLUME 90.6 fL (80-100); MEAN CORPUSCULAR HEMOGLOBIN 28.7 pg (25-34); MEAN CORPUSCULAR HGB CONC 31.7 g/dl (32-36); PLATELET COUNT 285 K/uL (130-400); RED BLOOD COUNT 4.35 M/uL (4.2-5.4); WHITE BLOOD COUNT 8.21 K/uL (4.8-10.8)
[2017-05-30 09:26] LABS: ALT/SGPT 13 U/L (12-78); AST/SGOT 12 U/L (15-37); BLOOD UREA NITROGEN 15 mg/dl (7-18); CALCIUM 8.7 mg/dl (8.5-10.1); CARBON DIOXIDE 29 mmol/L (21-32); CHLORIDE 108 mmol/L (98-107); CREATININE 0.53 mg/dl (0.60-1.20); GLUCOSE 90 mg/dl (70-99); POTASSIUM 3.9 mmol/L (3.5-5.1); SODIUM 142 mmol/L (136-145)
[2017-05-30 09:36] LABS: ALB/GLOB RATIO 0.8 (0.9-2); ALKALINE PHOSPHATASE 143 U/L (45-117)
== END ==
LOC: C.LABUPNIT 08:53
PROVIDERS: ATTEND Nurse Practitioner Family
DX: R53.1 Weakness (principal)

== ENCOUNTER → 2017-07-09 | Outpatient (CLI) | payer OTHER ==
[2017-07-09 10:55] LABS: BASO % 0.3 %; BASO ABS # 0.02 K/uL (0-0.2); EOS % 2.6 %; EOS ABS # 0.15 K/uL (0-0.5); HEMATOCRIT 38.1 % (37-47); HEMOGLOBIN 12.5 g/dL (12.0-16.0); IG# 0.02 K/uL (0.00-0.02); LYMPH % 24.1 %; MEAN CELL VOLUME 88.8 fL (80-100); MEAN CORPUSCULAR HEMOGLOBIN 29.1 pg (25-34); MEAN CORPUSCULAR HGB CONC 32.8 g/dl (32-36); MEAN PLATELET VOLUME 10.7 fL (7.4-10.4); MONO % 11.7 %; MONO ABS # 0.68 K/uL (0.11-0.59); NEUT ABS # 3.54 K/uL (1.4-6.5); PLATELET COUNT 220 K/uL (130-400); RED CELL DISTRIBUTION WIDTH CV 14.1 % (11.5-14.5); RED CELL DISTRIBUTION WIDTH SD 45.8 fL (36.4-46.3); WHITE BLOOD COUNT 5.81 K/uL (4.8-10.8)
[2017-07-09 11:10] LABS: ALBUMIN 2.9 gm/dl (3.4-5.0); ALT/SGPT 11 U/L (12-78); AST/SGOT 16 U/L (15-37); BLOOD UREA NITROGEN 13 mg/dl (7-18); CALCIUM 8.9 mg/dl (8.5-10.1); CARBON DIOXIDE 28 mmol/L (21-32); CREATININE 0.52 mg/dl (0.60-1.20); GLUCOSE 84 mg/dl (70-99); POTASSIUM 3.8 mmol/L (3.5-5.1); SODIUM 142 mmol/L (136-145)
[2017-07-09 11:13] LABS: ALKALINE PHOSPHATASE 74 U/L (45-117); TOTAL PROTEIN 6.1 gm/dl (6.4-8.2)
== END ==
LOC: C.LABUPNIT 09:36
PROVIDERS: ATTEND Nurse Practitioner Family
DX: M62.81 Muscle weakness (generalized) (principal)

== ENCOUNTER → 2017-10-29 | Outpatient (CLI) | payer OTHER | LOC: C.LABUPNIT 07:51 | PROVIDERS: ATTEND Nurse Practitioner Family | DX: E55.9 Vitamin D deficiency, unspecified (principal) ==

== ENCOUNTER → 2018-01-13 | Outpatient (CLI) | payer OTHER ==
[~2018-01-13] MED LIST changes: +ACET-1311 PO; +ACET-24 PO; +ACET650S10 PR; -ASCA500 PO; -ASPI1TAB83 PO; +Boost PO; +CLB100 PO; -FRRG PO; +LDDP5 TD; +PANT1TAB4 PO; +PRD10 PO; +VTMD1000 PO; +[UNRECOGNIZED DRUG - CODE] PO
[2018-01-13 09:07] LABS: BASO % 0.1 %; BASO ABS # 0.01 K/uL (0-0.2); EOS % 0.4 %; EOS ABS # 0.05 K/uL (0-0.5); HEMATOCRIT 36.6 % (37-47); HEMOGLOBIN 11.9 g/dL (12.0-16.0); IG# 0.07 K/uL (0.00-0.02); LYMPH % 14.4 %; LYMPH ABS # 1.67 K/uL (1.2-3.4); MEAN CELL VOLUME 88.2 fL (80-100); MEAN CORPUSCULAR HEMOGLOBIN 28.7 pg (25-34); MEAN CORPUSCULAR HGB CONC 32.5 g/dl (32-36); MEAN PLATELET VOLUME 10.1 fL (7.4-10.4); MONO % 8.3 %; MONO ABS # 0.96 K/uL (0.11-0.59); NEUT % 76.2 %; NEUT ABS # 8.86 K/uL (1.4-6.5); PLATELET COUNT 337 K/uL (130-400); RED CELL DISTRIBUTION WIDTH CV 15.9 % (11.5-14.5); RED CELL DISTRIBUTION WIDTH SD 51.1 fL (36.4-46.3); WHITE BLOOD COUNT 11.62 K/uL (4.8-10.8)
[2018-01-13 09:19] LABS: ALBUMIN 2.5 gm/dl (3.4-5.0); ALKALINE PHOSPHATASE 94 U/L (45-117); ALT/SGPT 22 U/L (12-78); AST/SGOT 14 U/L (15-37); BLOOD UREA NITROGEN 18 mg/dl (7-18); CALCIUM 8.4 mg/dl (8.5-10.1); CARBON DIOXIDE 23 mmol/L (21-32); CREATININE 0.63 mg/dl (0.60-1.20); GLUCOSE 98 mg/dl (70-99); SODIUM 143 mmol/L (136-145); TOTAL PROTEIN 5.7 gm/dl (6.4-8.2)
== END ==
LOC: C.LABUPNIT 08:39
PROVIDERS: ATTEND Nurse Practitioner Family
DX: Z02.89 Encounter for other administrative examinations (principal); R68.89 Other general symptoms and signs

== ENCOUNTER → 2018-01-20 | Outpatient (CLI) | payer OTHER ==
[2018-01-20 10:00] LABS: HEMATOCRIT 35.5 % (37-47); HEMOGLOBIN 11.5 g/dL (12.0-16.0); MEAN CELL VOLUME 88.3 fL (80-100); MEAN CORPUSCULAR HEMOGLOBIN 28.6 pg (25-34); MEAN CORPUSCULAR HGB CONC 32.4 g/dl (32-36); MEAN PLATELET VOLUME 10.2 fL (7.4-10.4); PLATELET COUNT 309 K/uL (130-400); RED CELL DISTRIBUTION WIDTH CV 15.7 % (11.5-14.5); RED CELL DISTRIBUTION WIDTH SD 50.7 fL (36.4-46.3); WHITE BLOOD COUNT 8.02 K/uL (4.8-10.8)
== END ==
LOC: C.LABUPNIT 07:56
PROVIDERS: ATTEND Nurse Practitioner Family
DX: R68.89 Other general symptoms and signs (principal)

== ENCOUNTER → 2018-01-27 | Outpatient (CLI) | payer OTHER | LOC: C.LABUPNIT 09:33 | PROVIDERS: ATTEND Nurse Practitioner Family | DX: E55.9 Vitamin D deficiency, unspecified (principal) ==